=== PATIENT | female | born 1995 | race Caucasian/White ===

== ENCOUNTER 2017-06-02 22:32 | Emergency (ER) | payer SELFPAY ==
[2017-06-02] MEDS ORDERED: Sulfameth/Trimethoprim DS 800-160mg TAB ONE (22:52)
[2017-06-02] MEDS ORDERED: Ondansetron ODT 4 MG TAB ONE (22:52)
== END 2017-06-02 23:10 | disposition home or self-care (01) ==
LOC: MADERS 22:32
DX: S09.90XA Unspecified injury of head, initial encounter (principal); F07.81 Postconcussional syndrome; L03.011 Cellulitis of right finger; L60.0 Ingrowing nail; W22.8XXA Striking against or struck by other objects, initial encounter
CPT/HCPCS: 99283; Q0162